=== PATIENT | male | born 1980 | race African-American/Black ===

== ENCOUNTER 2017-02-17 12:14 | Emergency (ER) | payer SELFPAY ==
[~2017-02-17] VITALS: Ht 172.7 cm; Wt 73.1 kg
--- OUTSIDE RECORDS SUMMARY | 2017-02-17 12:20 | XMS REPORT | Continuity of Care Document ---
Author Author [facility] Organization [facility] Address Unknown Phone Unavailable Allergies Active Description Code Type Severity Reaction Onset Reported/Identified Relationship to Patient Clinical Status Yes No Known Allergies No Known Allergies Drug Allergy Unknown N/A 12/14/2010 Yes No Known Allergies NKMA N/A N/A 04/21/2016 Medications Medication Packaging Start Date Stop Date Route Dosage Sig cephalexin(Keflex 500 mg oral capsule) 1 caps 04/21/20162015 Oral 500 mg 500 mg=1 caps, Oral, QID, for 7 days, 28 caps, 0 Refill(s) Problems Date Dx Coded Attending Type Code Diagnosis Diagnosed By 08/07/2012 Piter EASTON, Fanny Becerril V72.69 OTHER LABORATORY EXAMINATION 04/29/2016 Shultz Howard Final F17.210 Nicotine dependence, cigarettes, uncomplicated 04/29/2016 Shultz Howard Reason S61.421A Laceration with foreign body of right hand, initial encounter 04/29/2016 Shultz Howard Final W25.XXXA Contact with sharp glass, initial encounter 04/29/2016 Shultz Howard Final Y92.[address] in unspecified non- institutional (private) residence as t Procedures Results Test Result Range HEMOGLOBIN IDENTIFICATION - 08/07/12 11:18 HEMOGLOBIN A 98 % 97-100 HEMOGLOBIN A2 2 % 0-3 METABOLIC PANEL, COMPREHN - 11/25/16 08:10 POTASSIUM 3.7 mmol/L 3.5-5.3 EST GFR (MDRD) > 60 mL/min > 59 ANION GAP 13 mmol/L 5-15 GLUCOSE 107 mg/dL 70-99 CALCIUM 9.0 mg/dL 8.5-10.1 BLOOD UREA NITROGEN 13 mg/dL 7-20 CREATININE 1.4 mg/dL 0.7-1.3 SODIUM 139 mmol/L 135-148 CHLORIDE 102 mmol/L 98-110 AST/SGOT 20 Units/L 10-37 ALT/SGPT 20 Units/L < 66 CARBON DIOXIDE 24 mmol/L 21-32 TOTAL PROTEIN 6.8 gm/dL 6.4-8.2 ALBUMIN 3.6 gm/dL 3.4-5.0 BILI TOTAL 0.4 mg/dL 0.0-1.0 ALKALINE PHOSPHATASE TOTAL 56 IU/L 45- 117 LIPASE - 11/25/16 08:10 LIPASE 221 Units/L 73-393 Encounters ACCT No. Visit Date/Time Discharge Status Pt. Type Provider Facility Loc./Unit Complaint [id number] 04/21/2016 18:26:00 2015 19:50:00 DIS Emergency Shultz Howard [facility] on [facility] ED Right hand lac [id number] 04/22/2016 05:15:41 Document Registration
--- OUTSIDE RECORDS SUMMARY | 2017-02-17 12:20 | XMS REPORT | Referral Summary ---
Author Author [facility] Organization [facility] Address Unknown Phone Unavailable Care Team Providers Care After School Caregiver Name Role Phone No PCP, Pt States Primary Care Physician [phone] Encounter VC Date(s): 04/21/16 - 04/21/[address] [facility] [address] [place] [address] Discharge Diagnosis: Foreign body of right hand Discharge Diagnosis: Laceration of multiple sites of hand and fingers Discharge Disposition: 01-Home or Self Care Attending Physician: Duy Shultz MD Admitting Physician: Duy Shultz MD Vital Signs Most recent to 1 oldest [Reference Range]: Temperature Oral 36.9 degC [35.8-37.3 degC] (04/21/16 6:33 PM) Peripheral Pulse 81 bpm Rate [60-100 bpm] (04/21/16 6:33 PM) Respiratory Rate 16 br/min [14-20 br/min] (04/21/16 6:33 PM) Blood Pressure 109/66 mmHg [90-140/60-90 mmHg] (04/21/16 6:33 PM) SpO2 98 % (04/21/16 6:33 PM) Problem List No Known Problems Allergies, Adverse Reactions, Alerts No Known Allergies Medications Keflex 500 mg oral capsule 500 mg 1 caps, Oral, QID, X 7 days, # 28 caps, 0 Refill(s) Start Date: 04/21/16 Stop Date: 04/28/16 Status: Ordered Results No data available for this section Immunizations Vaccine Date Refusal Reason tetanus/diphth/pertuss (Tdap) adult/adol1 11/17/15 1Early/Late Reason: Nursing Judgment Procedures Procedure Date Related Diagnosis Body Site None Social History Social History Type Response Smoking Status Current every day smoker; Tobacco use per day: More than 1 pack Assessment and Plan No data available for this section
[2017-02-17 12:23] VITALS: Ht 172.7 cm; Wt 73.1 kg
[2017-02-17] MEDS ORDERED: No current home meds (12:32)
--- NOTE | 2017-02-17 12:39 | NUR ---
PORTABLE XRAY PORTABLE XRAY IN ROOM
[2017-02-17] MEDS ORDERED: LIDOCAINE 1% (10mg/ml) 30ml SDV INFIL ONE (12:45)
--- NOTE | 2017-02-17 12:49 | ERPDOC ---
Departure Disposition Decision Date: Feb 17, 2017 Disposition Decision Time: 13:17 (ZENON ZALDIVAR DO) Disposition: 01 DISCHARGED HOME, SELF-CARE Impression Impression (ZENON ZALDIVAR DO) Impression: Primary Impression: Laceration of left upper arm Encounter type: initial encounter Qualified Codes: S41.112A - Laceration without foreign body of left upper arm, initial encounter Severity: Moderate (ZENON ZALDIVAR DO) Condition: Improved Seen By: Physician and Mid-level (ZENON ZALDIVAR DO) Referrals: Your Local Physician 7-10 days for suture removal Patient Instructions: Laceration (ED), Care For Your Stitches (ED), Acute Wound Care (ED), Diphtheria Tetanus and Pertussis Vaccine (ED) Problems/Meds/Labs Reviewed?: Yes Medications reviewed and manag: Yes (ZENON ZALDIVAR DO) Follow up care ordered?: Yes Mental Status: Alert, Oriented (ZENON ZALDIVAR DO) Scripts Cephalexin (Keflex) 500 Mg Capsule 1 CAP PO BID for 10 Days, #20 CAP 0 Refills Prov: ZENON ZALDIVAR DO 02/17/17 HPI - Skin General General Chief Complaint: Laceration Stated Complaint: FALL,LAC TO L ARM Time Seen by Provider: 12:16 Source: patient (Patient presents to the ER with a laceration to his left anterior arm, just proximal to the elbow. Wound Measures approx 2cm, linear, without bleeding. Apparently wht wound occurred overnight, after the patient fell through a plate glass window while intoxicated. Patient has no other complaints. No other trauma is noted ) Exam Limitations: no limitations (ZENON ZALDIVAR DO) HPI - Skin General Occurred At: home Onset: Changing over time Duration: 12-24 hrs Pain Scale: Now: 0/10, Worst: Unable to Rate Severity: mild Location: extremities Possible Cause: other Associated Symptoms: other Hx of Similar Symptoms: No (ZENON ZALDIVAR DO) Allergies: Coded Allergies: No Known Allergies (Unverified , 02/17/17) Past History Past Medical History Pt denies signifigant PMH Hx Echocardiogram: No (ZENON ZALDIVAR DO) Surgical History Denies Surgeries (ZENON ZALDIVAR DO) Family History Family History: Negative (ZENON ZALDIVAR DO) Social History Smoking Status: Current every day smoker Does patient use chewing tobac: No Second Hand Exposure: No Substance Use Type: does not use Alcohol Intake: occasionally Last Drink: hours (ago) (12) Marital Status: Single Sexuality: female partner Housing: house Household Members: significant other Service: No Occupational Hazard: No Advance Directives: Yes Full Code (ZEN,ZENON DO) Record Review Pertinent history updated: Yes (ZEN,ZENON DO) Review of Systems Constitutional Constitutional: DENIES: chills, fever (ZEN,ZENON DO) Eyes Lids/Accessories: DENIES: erythema, swelling (ZEN,ZENON DO) ENMT Ears: DENIES: erythema, pain Balance: DENIES: ataxia, vertigo Sinuses: DENIES: congestion, rhinorrhea Mouth/Throat: DENIES: sore throat (ZEN,ZENON DO) Cardiovascular Cardiac: DENIES: chest pain, dyspnea on exertion, orthopnea Rhythm/Rate: DENIES: tachycardia (ZEN,ZENON DO) Pulmonary Respiratory: DENIES: cough, dyspnea, sputum (ZEN,ZENON DO) GI Upper Abdomen: DENIES: nausea, pain, vomiting Lower Abdomen: DENIES: constipation, diarrhea, pain (ZEN,ZENON DO) General: DENIES: dysuria (ZEN,ZENON DO) Musculoskeletal General: DENIES: cramps, pain, weakness (ZEN,ZENON DO) Integumentary Skin: see HPI, DENIES: color change, itching, rash (ZEN,ZENON DO) Neurological General: DENIES: ataxia, change in strength, headache, numbness, poor coordination, seizures, syncope, vertigo, weakness (ZEN,ZENON DO) Psychiatric Psychiatric: DENIES: anxiety, depression, nervousness (ZEN,ZENON DO) Hematologic/Lymphatic Hematologic/Lymphatic: DENIES: anemia (ZEN,ZENON DO) Allergic/Immunological Allergic/Immunoligical: DENIES: sneezing (ZEN,ZENON DO) All other Systems All Other Systems: Reviewed and Negative (ZEN,ZENON DO) Physical Exam General General Nourishment: well nourished, well developed, appears stated age, adult General Body Habitus: well groomed (ZEN,ZENON DO) Vitals and Pain First Documented Vital Signs Date Time Temp Pulse Resp B/P Pulse Ox O2 Delivery O2 Flow Rate FiO2 02/17/17 12:23 97.8 86 16 123/65 97 Room Air (JAZ CANNON APRN) Vitals and Pain Weight: Kilograms: 73.100 Height (feet): 5 Height (inches): 8.00 Triage Pain Scale: (LICO ZALDIVARIN DO) RN VS reviewed by Provider: Yes (ZEN,ZENON DO) Eyes (brief) Eyes Brief: found: EOMI, PERRL (ZEN,ZENON DO) ENMT (brief) ENMT Brief: FOUND: mucosa moist (ZEN,ZENON DO) Neck (brief) Neck: FOUND: trachea midline, NOT FOUND: tenderness, tracheal deviation ( ZEN,ZENON DO) Respiratory (brief) Respiratory: FOUND: clear all nixon, equal bilaterally (ZEN,ZENON DO) Cardiovascular (brief) Cardiac: FOUND: regular rate, regular rhythm Capillary Refill: <2 sec Pulses: all distal extremities, equal, strong (ZEN,ZENON DO) Abdomen (brief) Abdominal Brief: FOUND: bowel normo active x4, soft, NOT FOUND: distended, tender (ZEN,ZENON DO) Lymphatic (brief) Lymphatic Brief: NOT FOUND: adenopathy (ZEN,ZENON DO) Musculoskeletal (brief) Musculoskeletal Brief: NOT FOUND: deformity, spasm, tenderness (ZEN,ZENON DO) Integumentary (brief) Integumentary Brief: FOUND: other (refer to HPI), pink, warm (ZEN,ZENON DO) Neurologic (brief) Neurological Brief: FOUND: CN w/o gross def to obs, gait w/o gross def to obs, motor-no gross deficits, sensory-no gross deficits, NOT FOUND: ataxia (ZEN, ZENON DO) Psychiatric (brief) Psychiatric Brief: FOUND: alert, attentive, normal affect, oriented (ZEN, ZENON DO) Differential Diagnoses Considering: Laceration (ZEN,ZENON DO) Procedures Procedures Performed Procedures Performed: Laceration Repair (PRIESTESA N HARBOUR MASTER) Laceration/Wound Repair Wound/Laceration Repair : Wound Location: upper extremity (left upper arm) Wound Length (cm): 3.5 Depth, Shape: subcutaneous, linear Explored: clean Irrigated: saline Prep: chlorasept Anesthesia: 1% Lidocaine Volume Anesthetic (ccs): 1 Type of Block: local Repaired With: Sutures Suture Size: 4:0 Suture Type: prolene Number of Sutures: 8 Layer Closure?: Yes Deep Layer Suture Size: 3:0 Deep Layer Suture Type: vicryl Number Deep Layer Sutures: 3 Extensor Tendon Repair?: No (JAZ CANNON APRN) Progress Results/Orders Orders Procedure Category Date Status Time Elbow Left 2 View RAD 02/17/17 Resulted Lidocaine 1% PHA 02/17/17 Complete (Xylocaine 1%) 12:45 (JAZ CANNON APRN) Medications Current ED Medications Lidocaine HCl (Xylocaine 1%) 100 mg O ONCE INFIL ; Start 02/17/17 at 12:45; Stop 02/17/17 at 12:46; Status DC (JAZ CANNON APRN) ZENON ZALDIVAR DO Feb 17, 2017 12:49 JAZ CANNON APRN Feb 17, 2017 13:15
--- OUTSIDE RECORDS SUMMARY | 2017-02-17 12:56 | XMS REPORT | Continuity of Care Document ---
Author Author [facility] Organization [facility] Address Unknown Phone Unavailable Allergies [...] Status Pt. Type Provider Facility Loc./Unit Complaint [id number] 04/21/2016 18:26:00 2015 19:50:00 DIS Emergency Shultz Howard [facility] on [facility] ED Right hand lac [id number] 04/22/2016 05:15:41 Document Registration
--- NOTE | 2017-02-17 13:00 | DI ---
Indication: ITS.REASON: fell through a storm door PROCEDURE: ELBOW LEFT 2 VIEW: Encounter: Initial Comparison: None Findings: There is no acute fracture, dislocation or malalignment identified. Overlying bandaging material seen. No discrete subcutaneous radiopaque foreign body identified. There are tiny punctate submillimeter radiodensities is seen in the medial and lateral soft tissues of the distal humerus, several of which are remote from the area of laceration and are felt to be either due to detector artifact or image noise. Impression: No acute osseous abnormality. No discrete radiopaque foreign body identified. .
[2017-02-17] MEDS ORDERED: CEPH-583 PO (13:19)
[2017-02-17 13:30] VITALS: BP 123/65; PULSE 86; RESP 16; TEMP 97.8; O2SAT 97
[2017-02-17] MEDS ORDERED: TETANUS,DIPHTH,a PERTUS (Tdap) 0.5 ML VIAL IM ONE (13:30)
[2017-02-17] MEDS ORDERED: NEOMYCIN/POLYM/BACITR OINT PACKET TOP ONE (13:30)
== END 2017-02-17 13:30 | disposition home or self-care (01) ==
LOC: ED 12:14
DX: S41.112A Laceration without foreign body of left upper arm, initial encounter (principal); W18.39XA Other fall on same level, initial encounter; Y93.9 Activity, unspecified; Y92.009 Unspecified place in unspecified non-institutional (private) residence as the place of occurrence of the external cause; Y99.8 Other external cause status
CPT/HCPCS: 90715